=== PATIENT | female | born 1990 | race Caucasian/White ===

== ENCOUNTER 2016-03-08 16:36 | Outpatient (CLI) | payer OTHER ==
[~2016-03-08] VITALS: Ht 172.7 cm; Wt 107.9 kg
[~2016-03-08 16:36] MED LIST: AMOXICILLIN875 MG PO; PREDNISONE10 M1 PO; PRENATAL TABLE1 EAC3 PO
[2016-03-08 16:53] VITALS: BP 117/75
[2016-03-08 17:02] VITALS: BP 113/72
[2016-03-08 17:13] VITALS: BP 114/77
[2016-03-08 18:00] VITALS: BP 120/82
[2016-03-08 19:54] LABS: ADD MIUA? YES; BILIRUBIN NEGATIVE; BLOOD LARGE; COLOR YELLOW ((YELLOW)); GLUCOSE (STRIP) NEGATIVE; KETONES NEGATIVE; LEUKOCYTES SMALL; NITRITE NEGATIVE; PH, URINE 7.5 (5-8); PROTEIN (STRIP) NEGATIVE; SPECIFIC GRAVITY 1.014 (1.000-1.030); UROBILINOGEN 0.2 MG/DL (0.2-1.0)
[2016-03-08 20:49] LABS: BACTERIA RARE; CASTS NONE SEEN /LPF; CRYSTALS PRESENT; EPITHELIAL CELLS 1+; MUCUS NONE SEEN; RED BLOOD CELLS 30-40 /HPF (0-5); WHITE BLOOD CELLS 0-5 /HPF (0-5)
[2016-03-08 20:50] LABS: AMORPHOUS PHOSPHATE CRYSTALS 1+
== END 2016-03-08 18:59 | disposition home or self-care (01) ==
LOC: LDRP-OP 16:36 → 2WEST 16:37 → LDRP-OP 04-18 22:15
PROVIDERS: Advanced Practice Midwife
DX: M54.9 Dorsalgia, unspecified (principal); O99.89 Other specified diseases and conditions complicating pregnancy, childbirth and the puerperium; R10.2 Pelvic and perineal pain; Z3A.30 30 weeks gestation of pregnancy
CPT/HCPCS: 59025; 81003; G0378

== ENCOUNTER 2016-03-20 07:10 | Inpatient (IN) | payer OTHER ==
[2016-03-20] VITALS (18 sets, daily range): BP systolic 89–149; BP diastolic 58–94
[~2016-03-20] VITALS: Ht 170.2 cm; Wt 109.7 kg
[2016-03-20 08:52] LABS: EOSINOPHIL (%) 0.6 % (0-5); HEMATOCRIT 35.9 % (36.0-46.0); IMMATURE GRANULOCYTE (%) 0.5 % (0.0-0.7); LYMPHOCYTE COUNT 1.2 K/uL (1.0-2.8); MCH 28.3 PG (29.0-34.0); MCHC 33.1 G/DL (30.0-36.0); MCV 85.3 FL (83-99); MEAN PLAT.VOLUME 10.6 uM^3 (9.5-12.4); MONOCYTE (%) 7.1 % (3-12); MONOCYTE COUNT 0.5 K/uL (0-0.8); NEUTROPHIL (%) 72.8 % (45-76); NEUTROPHIL COUNT 4.8 K/uL (1.8-6.4); PLATELET COUNT 251 K/uL (156-360); RBC DIS.WIDTH-CV 14.9 % (11.8-14.6); RBC DIS.WIDTH-SD 45.8 % (39-53); RED BLOOD COUNT 4.21 M/uL (3.80-5.20); WHITE BLOOD COUNT 6.6 K/uL (4.1-10.2)
[2016-03-20 13:33] LABS: ADD MIUA? YES; BILIRUBIN NEGATIVE; BLOOD LARGE; COLOR YELLOW ((YELLOW)); GLUCOSE (STRIP) NEGATIVE; KETONES NEGATIVE; LEUKOCYTES MODERATE; NITRITE NEGATIVE; PH, URINE 6.5 (5-8); PROTEIN (STRIP) NEGATIVE; SPECIFIC GRAVITY 1.005 (1.000-1.030); UROBILINOGEN 0.2 MG/DL (0.2-1.0)
[2016-03-20 14:09] LABS: MUCUS NONE SEEN; RED BLOOD CELLS 0-5 /HPF (0-5); UCUL ADDED? NO
[2016-03-20 14:10] LABS: BACTERIA 1+; CASTS NONE SEEN /LPF; CRYSTALS NONE SEEN; EPITHELIAL CELLS RARE
[2016-03-21 05:26] LABS: EOSINOPHIL (%) 0.3 % (0-5); HEMATOCRIT 29.8 % (36.0-46.0); IMMATURE GRANULOCYTE (%) 0.4 % (0.0-0.7); LYMPHOCYTE COUNT 2.1 K/uL (1.0-2.8); MCH 27.7 PG (29.0-34.0); MCHC 32.2 G/DL (30.0-36.0); MCV 85.9 FL (83-99); MEAN PLAT.VOLUME 10.5 uM^3 (9.5-12.4); MONOCYTE (%) 8.6 % (3-12); MONOCYTE COUNT 0.9 K/uL (0-0.8); NEUTROPHIL COUNT 7.1 K/uL (1.8-6.4); PLATELET COUNT 232 K/uL (156-360); RBC DIS.WIDTH-CV 15.2 % (11.8-14.6); RBC DIS.WIDTH-SD 46.6 % (39-53); RED BLOOD COUNT 3.47 M/uL (3.80-5.20); WHITE BLOOD COUNT 10.1 K/uL (4.1-10.2)
[2016-03-21 07:31] VITALS: BP 123/74
[2016-03-21 15:36] VITALS: BP 125/70
[2016-03-21 23:44] VITALS: BP 112/68
[2016-03-22 07:08] VITALS: BP 115/76
[2016-03-22 16:00] VITALS: BP 132/83
== END 2016-03-22 17:32 | disposition home or self-care (01) | DRG 775 ==
LOC: LDRP-OP 07:10 → 2WEST 07:11 → LDRP-OP 07:26 → 2WEST 17:19 → LDRP-OP 04-18 19:09
PROVIDERS: Advanced Practice Midwife
DX: O70.0 First degree perineal laceration during delivery (principal); O99.02 Anemia complicating childbirth; D62 Acute posthemorrhagic anemia; O48.0 Post-term pregnancy; O99.814 Abnormal glucose complicating childbirth; O99.214 Obesity complicating childbirth; E66.9 Obesity, unspecified; Z68.35 Body mass index [BMI] 35.0-35.9, adult; Z3A.40 40 weeks gestation of pregnancy; Z37.0 Single live birth; Z23 Encounter for immunization
CPT/HCPCS: 81003; 85025; C1755; J7120

== ENCOUNTER 2016-05-22 22:35 | Emergency (ER) | payer OTHER ==
[~2016-05-22] VITALS: Ht 170.2 cm; Wt 106.0 kg
[2016-05-23 02:26] VITALS: BP 122/73
== END 2016-05-23 02:26 | disposition home or self-care (01) ==
LOC: EME 22:35
DX: F53 Mental and behavioral disorders associated with the puerperium, not elsewhere classified (principal); Z87.891 Personal history of nicotine dependence
CPT/HCPCS: 99281; 99284

== ENCOUNTER 2016-05-28 15:04 | Emergency (ER) | payer OTHER ==
[~2016-05-28] VITALS: Ht 170.2 cm; Wt 107.5 kg
[2016-05-28] MEDS ORDERED: CEPHALEXIN500 MG PO (15:11)
[2016-05-28] MEDS ORDERED: SPRINTEC1 EACH PO (15:12)
[2016-05-28 15:51] LABS: HEMATOCRIT 38.2 % (36.0-46.0); MCH 26.9 PG (29.0-34.0); MCHC 31.7 G/DL (30.0-36.0); MCV 84.9 FL (83-99); MEAN PLAT.VOLUME 8.9 uM^3 (9.5-12.4); PLATELET COUNT 342 K/uL (156-360); RBC DIS.WIDTH-SD 43.3 % (39-53); WHITE BLOOD COUNT 5.9 K/uL (4.1-10.2)
[2016-05-28 16:11] LABS: CHLORIDE 103 mEq/L (99-109); POTASSIUM 3.9 mEq/L (3.7-5.4); SODIUM 139 mEq/L (136-147)
[2016-05-28 16:13] LABS: GLUCOSE 106 mg/dL (70-99)
[2016-05-28 16:14] LABS: ANION GAP 10 MEQ/L (2-14)
[2016-05-28 16:15] LABS: TOTAL BILIRUBIN 0.2 mg/dL (0.0-1.0)
[2016-05-28 16:17] LABS: ALKALINE PHOSPHATASE 66 IU/L (3-129); GFR ESTIMATE (CALCULATED) > 59 mL/min/
[2016-05-28 16:18] LABS: UREA NITROGEN (BUN) 12 mg/dL (9-23)
[2016-05-28 16:20] LABS: LIPASE 17 U/L (1.0-51.0)
[2016-05-28 16:38] LABS: ADD MIUA? YES; BILIRUBIN NEGATIVE; BLOOD MODERATE; COLOR YELLOW ((YELLOW)); GLUCOSE (STRIP) NEGATIVE; KETONES NEGATIVE; LEUKOCYTES NEGATIVE; NITRITE NEGATIVE; PROTEIN (STRIP) NEGATIVE; SPECIFIC GRAVITY 1.017 (1.000-1.030); UROBILINOGEN 0.2 MG/DL (0.2-1.0)
[2016-05-28 16:48] LABS: BACTERIA NONE SEEN /HPF; EPITHELIAL CELLS RARE /HPF; HYALINE CASTS 0-5 /LPF; MUCUS TRACE /LPF; RED BLOOD CELLS 30-40 /HPF (0-5); UCUL ADDED? NO; WHITE BLOOD CELLS 0-5 /HPF (0-5)
[2016-05-28] MEDS ORDERED: TRAMADOL HCL50 MG PO (17:26)
[2016-05-28] MEDS ORDERED: CARAFATE1 GM PO (17:26)
[2016-05-28] MEDS ORDERED: ZANTAC300 MG PO (17:26)
[2016-05-28] MEDS ORDERED: ZOFRAN4 MG PO (17:27)
[2016-05-28 17:58] VITALS: BP 136/88
== END 2016-05-28 17:58 | disposition home or self-care (01) ==
LOC: EME 15:04
PROVIDERS: Physician Assistant
DX: K29.70 Gastritis, unspecified, without bleeding (principal); K21.9 Gastro-esophageal reflux disease without esophagitis; Z87.891 Personal history of nicotine dependence
CPT/HCPCS: 76705; 80053; 81003; 83690; 85027; 99281; 99284

== ENCOUNTER 2016-11-27 16:38 | Emergency (ER) | payer OTHER ==
[~2016-11-27] VITALS: Ht 171.4 cm; Wt 108.6 kg
[~2016-11-27 16:38] MED LIST changes: +CARAFATE1 GM PO; +CEPHALEXIN500 MG PO; +SPRINTEC1 EACH PO; +TRAMADOL HCL50 MG PO; +ZANTAC300 MG PO; +ZOFRAN4 MG PO
[2016-11-27 18:24] LABS: HEMATOCRIT 39.8 % (36.0-46.0); MCH 28.2 PG (29.0-34.0); MCHC 32.9 G/DL (30.0-36.0); MCV 85.6 FL (83-99); MEAN PLAT.VOLUME 8.8 uM^3 (9.5-12.4); PLATELET COUNT 340 K/uL (156-360); RBC DIS.WIDTH-CV 13.6 % (11.8-14.6); RBC DIS.WIDTH-SD 42.2 % (39-53); RED BLOOD COUNT 4.65 M/uL (3.80-5.20); WHITE BLOOD COUNT 8.7 K/uL (4.1-10.2)
[2016-11-27 18:32] LABS: CHLORIDE 105 mEq/L (99-109); POTASSIUM 4.1 mEq/L (3.7-5.4); SODIUM 139 mEq/L (136-147)
[2016-11-27 18:33] LABS: GLUCOSE 85 mg/dL (70-99)
[2016-11-27 18:35] LABS: ANION GAP 11 MEQ/L (2-14)
[2016-11-27 18:37] LABS: GFR ESTIMATE (CALCULATED) > 59 mL/min/
[2016-11-27 18:38] LABS: UREA NITROGEN (BUN) 9 mg/dL (9-23)
[2016-11-27 18:47] LABS: QUANTITATIVE HCG < 4.0 MIU/ML
[2016-11-27 19:16] VITALS: BP 106/81
== END 2016-11-27 19:18 | disposition home or self-care (01) ==
LOC: EME 16:38
PROVIDERS: Physician Assistant Medical
DX: R55 Syncope and collapse (principal); Z87.891 Personal history of nicotine dependence
CPT/HCPCS: 80048; 84702; 85027; 93005; 99281; 99284